=== PATIENT | male | born 1965 | race Caucasian/White ===

== ENCOUNTER 2021-08-05 08:18 | Outpatient (CLI) | payer OTHER ==
[~2021-08-05] VITALS: Ht 193 cm; Wt 172.7 kg
[2021-08-05] MEDS ORDERED: LISI10TA25 PO (14:00)
== END 2021-08-05 14:08 | disposition home or self-care (01) ==
LOC: PREOP 08:18
PROVIDERS: ATTEND Surgery
DX: Z01.818 Encounter for other preprocedural examination (principal)

== ENCOUNTER 2021-08-12 10:29 | Day surgery (SDC) | payer OTHER ==
--- NOTE | 2021-08-04 16:36 | HISTORY AND PHYSICAL ---
DATE OF SERVICE: 08/12/2021 DATE OF SERVICE: 08/12/2021 HISTORY OF PRESENT ILLNESS: The patient is a 55-year-old male who is being seen for complaints of bulging and discomfort in the umbilical region. He reports that he noticed this for the past couple of years and reports this has become larger in size. He reports that he was recently diagnosed with high blood pressure and started on blood pressure medications. Since that time, he started exercising and eating better and reports that he had lost 10 to 12 pounds and plans on losing several more. He reports that he started exercising by doing aerobic exercises as well as resistance weight training. He denies any diarrhea or constipation. He also reports that he is in need of a screening colonoscopy and has never had a colonoscopy before. He denies any blood in his stool as well as no family history of any colon cancer. PAST MEDICAL HISTORY: Hypertension. PAST SURGICAL HISTORY: None. ALLERGIES: No known drug allergies. MEDICATIONS: Lisinopril 10 mg daily. SOCIAL HISTORY: Negative for tobacco smoke or alcohol. FAMILY HISTORY: None. VITAL SIGNS: Stable. Current weight is 382.2 pounds at 6 feet 4 inches with a body mass index of 46.5. PHYSICAL EXAMINATION: CHEST: Clear. Good breath sounds bilaterally. HEART: Regular, no murmurs. EXTREMITIES: No lower extremity edema. Negative Homans sign. HEENT: No scleral icterus. NECK: No cervical lymphadenopathy. ABDOMEN: Soft, nondistended. There is an umbilical hernia present, which is painful to palpation. No palpable masses. No peritoneal signs. SKIN: Warm, dry and pink. NEUROLOGIC: Awake, alert and oriented x3. ASSESSMENT AND PLAN: A 55-year-old male with a symptomatic umbilical hernia. He was also in need of a screening colonoscopy. At this time, it was discussed with him about the risk of incarceration as well as strangulation and his risk of recurrence due to his current body habitus. It was also discussed with him about continuing to proceed with the necessary diet and exercise to further promote weight loss and then proceeding with the umbilical hernia repair with mesh as well as the screening colonoscopy once he has lost approximately 80 to 100 pounds, which would make the surgery much easier and decrease his risk of recurrence. He was instructed if he does become more symptomatic, he is to call or return and would proceed with repair at that time. The patient verbalized understanding of instructions and agrees to this plan. At this time, we will proceed with scheduling him for an umbilical hernia repair with mesh as well as a screening colonoscopy. Job ID: [id number] DocumentID: [id number] Dictated Date: 07/20/2021 08:06:31 Implementation Project Coordinator Date: 07/20/2021 09:47:16 Dictated By: TABITHA BRITTON APRN
[2021-08-12] VITALS (16 sets, daily range): BP systolic 162–191; BP diastolic 94–137
[~2021-08-12] VITALS: Ht 193 cm; Wt 172.7 kg
[~2021-08-12 10:29] MED LIST: LISI10TA25 PO
--- OUTSIDE RECORDS SUMMARY | 2021-08-12 10:32 | XMS REPORT | Clinical Summary ---
Author Author [facility] Organization [facility] Address Unknown Phone Unavailable Care Team Providers Care Utility Technician Name Role Phone PCP Unavailable Allergies Not on File Medications Not on file Active Problems Not on file Social History Date Tobacco Use Types Packs/Day Years Used Never Assessed Sex Assigned at Date Recorded Not on file Last Filed Vital Signs Not on file Plan of Treatment Health Maintenance Due Date Last Done Comments Hepatitis C Screen 1965 Td/Tdap# 1965 COVID-19 Vaccine (1) 1969 Colorectal Screening via 2014 Colonoscopy Zoster Vaccine# (1 of 2) 2014 Influenza Vaccine (#1) 2021 Pneumococcal Vaccine: Aged Out No longer eligib le based on patient's age to Pediatrics (0 to 5 Years) complete this topic and At-Risk Patients (6 to 64 Years) Results Not on filefrom Last 3 Months Advance Directives For more information, please contact: [phone] Patient Rn Trauma Explanation Type Date Recorded Health Care Directive
[2021-08-12] MEDS ORDERED: LACTATED RINGERS 1,000 ML IV PRN (10:45)
[2021-08-12] MEDS ORDERED: ceFAZolin 2 GM IV Premixed 50 ML IV ONE (10:45)
--- NOTE | 2021-08-12 10:52 | Progress Note-Pre Operative ---
Pre-Operative Progress Note H&P Reviewed The H&P was reviewed, patient examined and no changes noted. Date Seen by Provider: Aug 12, 2021 Time Seen by Provider: 10:30 Date H&P Reviewed: Aug 12, 2021 Time H&P Reviewed: 10:30 Pre-Operative Diagnosis: umbilical hernia, screening o ANMOL FARIA MD Aug 12, 2021 10:52
[2021-08-12] MEDS ORDERED: HYDR-3817 PO (10:54)
--- NOTE | 2021-08-12 10:54 | Discharge Inst-Surgical ---
D/C Lap Instructions-BIENVENIDO New, Converted, or Re-Newed RX: RX on Chart Follow Up Appt in 2 weeks Activity as tolerated No driving for 24 hours No driving while on pain medications Incentive Spirometry use every 2 hours while awake Regular Diet Symptoms to Report: Fever over 101 degree F, Nausea/Vomiting Infection Signs and Symptoms to report: Increased redness, Foul odor of wound, Increased drainage Bathing instructions: May shower Operative Area Clean/Dry; Keep incision clean/dry If any problems/questions: Contact your physician or go to Emergency Room ANMOL FARIA MD Aug 12, 2021 10:54
[2021-08-12] MEDS ORDERED: ONDANSETRON 4 MG/2 ML (SDV) Z0FRAN IVP PRN (11:00)
[2021-08-12] MEDS ORDERED: morphine INJ 10 MG/ML 1ML (SYR OR VIAL) IVP PRN ×2 (11:00)
[2021-08-12] MEDS ORDERED: oxyCODONE/APAP 5/325MG (PERCOCET 5) TABLET PO PRN (11:00)
[2021-08-12] MEDS ORDERED: ACETAMINOPHEN 325 MG TABLET PO PRN (11:00)
[2021-08-12] MEDS ORDERED: proPOfol 200 MG/20 ML (DIPRIVAN) VIAL IV ONE (11:14)
[2021-08-12] MEDS ORDERED: fentaNYL INJ 100 MCG/2 ML AMP ONE (11:14)
[2021-08-12] MEDS ORDERED: LIDOCAINE PF 2% 5 ML (XYLOCAINE) VIAL ONE (11:14)
[2021-08-12] MEDS ORDERED: ONDANSETRON 4 MG/2 ML (SDV) Z0FRAN ONE (11:14)
[2021-08-12] MEDS ORDERED: MIDAZOLAM 2 MG/2 ML (VERSED) VIAL ONE ×2 (11:14→12:08)
[2021-08-12] MEDS ORDERED: LABETALOL HCL 20 MG/4 ML VIAL IV ONE ×2 (11:15→12:15)
[2021-08-12] MEDS ORDERED: LABETALOL HCL 20 MG/4 ML VIAL ONE ×2 (11:21→12:09)
[2021-08-12 11:23] LABS: BASOPHILS # (AUTO) 0.1 10^3/uL (0.0-0.1); BASOPHILS % (AUTO) 1 % (0-10); EOSINOPHILS # (AUTO) 0.2 10^3/uL (0.0-0.3); EOSINOPHILS % (AUTO) 3 % (0-10); HEMATOCRIT 46 % (40-54); HEMOGLOBIN 15.4 g/dL (13.3-17.7); LYMPHOCYTES # (AUTO) 2.1 10^3/uL (1.0-4.0); LYMPHOCYTES % (AUTO) 22 % (12-44); MEAN CORPUSCULAR HEMOGLOBIN 28 pg (25-34); MEAN CORPUSCULAR HGB CONC 33 g/dL (32-36); MEAN CORPUSCULAR VOLUME 83 fL (80-99); MEAN PLATELET VOLUME 9.6 fL (9.0-12.2); MONOCYTES # (AUTO) 0.8 10^3/uL (0.0-1.0); MONOCYTES % (AUTO) 9 % (0-12); NEUTROPHILS # (AUTO) 6.3 10^3/uL (1.8-7.8); NEUTROPHILS % (AUTO) 66 % (42-75); PLATELET COUNT 216 10^3/uL (130-400); WHITE BLOOD COUNT 9.6 10^3/uL (4.3-11.0)
[2021-08-12] MEDS ORDERED: LIDOCAINE/EPI 1%-1:200,000 (XYLOCAINE) 30 ML VIAL ONE (11:31)
[2021-08-12] MEDS ORDERED: MIDAZOLAM 2 MG/2 ML (VERSED) VIAL IV ONE (12:15)
== END 2021-08-12 13:30 ==
LOC: SDC 10:29
PROVIDERS: ATTEND Surgery
DX: K42.9 Umbilical hernia without obstruction or gangrene (principal); I10 Essential (primary) hypertension; Z79.899 Other long term (current) drug therapy; Z53.9 Procedure and treatment not carried out, unspecified reason
CPT/HCPCS: 36415; 85025; 87081